=== PATIENT | female | born 1970 | race Caucasian/White ===

== ENCOUNTER 2018-08-30 04:04 | Emergency (ER) | payer SELFPAY ==
[~2018-08-30] VITALS: Ht 162.6 cm; Wt 58.1 kg
[2018-08-30 04:18] VITALS: Ht 162.6 cm; Wt 58.1 kg
[2018-08-30 06:36] VITALS: BP 121/84
== END 2018-08-30 06:36 | disposition home or self-care (01) ==
LOC: EDBD 04:04 → ED 04:04
DX: M79.10 Myalgia, unspecified site (principal); M79.671 Pain in right foot; M79.672 Pain in left foot; Z98.890 Other specified postprocedural states

== ENCOUNTER 2018-08-30 07:25 | Inpatient (IN) | payer MEDICAID ==
[~2018-08-30] VITALS: Ht 162.6 cm; Wt 64.0 kg
--- NOTE | 2018-08-30 07:39 | NUR ---
RECEIVED PATIENT TO ROOM 5, [facility], PER REPORT PATIENT WAS FOUND IN [facility] [employer], CONFUSED, DIDN'T KNOW HOW SHE GOT THERE. [facility] IS "GRAVELY DISABLED" AND WILL PUT PATIENT ON HOLD. PATIENT IS AAO X 3 (NAME, , AND CONDITION). WHEN ASKED HOW SHE GOT TO [facility] FROM [place], PATIENT STATES "I TOOK THE BUS. I DON'T KNOW WHEN I GOT HERE." PATIENT STATES "I LIVE WITH MY PARENTS IN [place], AT [address], [place] [id number], TEL # [phone]." PATIENT DENIES TAKING ALCOHOL/DRUGS. PATIENT STATES "I TOOK MY MEDS LAST NIGHT." EYES - RUBÉN. MUCUS - DRY. LUNGS - CTA. BS PRESENT X 4 QUADRANTS. B/L UPPER AND LOWER EXT PULSES PALPABLE. WILL CONTINUE TO MONITOR.//MAY RN
--- NOTE | 2018-08-30 07:48 | NUR ---
PATIENT IN ROOM 5, NEAR NURSING STATION.//APR RN
--- NOTE | 2018-08-30 07:50 | NUR ---
PATIENT ASKED FOR UNDERWEAR, GIVEN UNDERWEAR AND SHE PUT IT ON HERSELF. SUDDEN OUTBURSE OF CUSSING AND SEEMS ANGRY. WILL CONTINUE TO MONITOR.//APR RN
--- NOTE | 2018-08-30 08:00 | NUR ---
CALLED [phone] AND SPOKE WITH RAVINDER PENA - STEP FATHER WHO STATES PATIENT USED TO LIVE WITH THEM UNTIL HER BOYFRIEND ABOUT 4 YEARS AGO. STEP FATHER STATES "SHE'S BEEN TO [facility] IN [place], BUT SHE NEEDS TO BE IN THE [facility] SO I CAN VISIT HER THERE. HER MOTHER HAS THE SAME CONDITION AND SHE'S IN A FACILITY RIGHT NOW SO SHE CAN'T CARE FOR HER. I DON'T WANT HER HERE AT HOME BECAUSE SHE'S TOO MUCH AND SHE'S A TROUBLE, SHE REALLY NEEDS TO BE IN A FACILITY." ADVISED RAVINDER PENA WILL KEEP HIM POSTED OF THE PATIENT'S CONDITION AND WILL CALL BACK AGAIN SHOULD WE NEED FURTHER INFORMATION FROM HIM. RAVINDER VERBALIZED UNDERSTANDING. DR VALENCIA MADE AWARE OF ABOVE CONVERSATION WITH RAVINDER PENA, ADVISED OF SW NEED FOR EVAL AT THIS TIME.//MAY RN
--- NOTE | 2018-08-30 09:12 | NUR ---
PATIENT SLEEPING, BUT ASILY AROUSABLE.//APR RN
--- NOTE | 2018-08-30 09:51 | NUR ---
PATIENT GIVEN BREAKFAST, BUT REFUSED STATES "LEAVE ME ALONE, I DON'T WANT TO EAT, I JUST WANT TO SLEEP."//APR RN
--- NOTE | 2018-08-30 10:35 | NUR ---
SW AT BEDSIDE FOR EVAL, APPRISED OF PATIENT'S CONDITION.//APR RN
--- NOTE | 2018-08-30 12:50 | NUR ---
PT REFUSED LAB WORK
--- NOTE | 2018-08-30 13:05 | NUR ---
PER DR. VALENCIA, DRAW LABS. LAB @ BEDSIDE.
--- NOTE | 2018-08-30 13:11 | NUR ---
LABS DRAWN BY [employer] AT THIS TIME.//JUNE RN
--- NOTE | 2018-08-30 13:11 | NUR ---
PATIENT GIVEN LUNCH AND EATING LUNCH AT THIS TIME. PATIENT DENIES ANY PAIN AT THIS TIME//APR RN
[2018-08-30 13:26] LABS: BASOPHIL % 0.7 % (0-2); PLATELET COUNT 161 x10^3mcL (130-400)
[2018-08-30 13:28] LABS: RED CELL DISTRIBUTION WIDTH 15.6 % (11.5-14.5)
--- NOTE | 2018-08-30 13:32 | NUR ---
PATIENT BELIGERENT, TOOK OFF CLOTHES, GOT OUT OF BED AND SCREAMING STATING "I WANT TO GO HOME NOW, I JUST WANT TO TAKE THE BUS AND GO HOME. DR VALENCIA AT BEDSIDE, NEW ORDERS GIVEN AND CARRIED OUT..//MAY RN
[2018-08-30 13:34] LABS: CALCIUM 8.1 mg/dL (8.5-10.1); CARBON DIOXIDE 28.5 mmol/L (21-32); CHLORIDE SERUM 110 mmol/L (98-107); CREATININE SERUM 0.6 mg/dL (0.6-1.0); GFR1 > 60 mL/min; GLUCOSE SERUM 91 mg/dL (74-106); POTASSIUM SERUM 4.1 mmol/L (3.5-5.1); SODIUM SERUM 144 mmol/L (136-145)
[2018-08-30 13:39] LABS: ALBUMIN 3.1 g/dL (3.4-5.0); ALKALINE PHOSPHATASE 88 U/L (46-116); ALT/SGPT 22 U/L (14-59); AST/SGOT 20 U/L (15-37); BILIRUBIN TOTAL 0.3 mg/dL (0.20-1.00); TOTAL PROTEIN, SERUM 6.6 g/dL (6.4-8.2)
--- NOTE | 2018-08-30 14:08 | NUR ---
CALLED [phone] AND SPOKE WITH RAVINDER PENA, STEP FATHER, APPRISED OF THE NEED TO PUT PATIENT ON RESTRAINT. STEP FATHER CONCURRED AND VERBALIZED UNDERSTANDING, NO QUESTION AT THIS TIME.//APR RN
--- NOTE | 2018-08-30 14:55 | NUR ---
KAREN LY AT BEDSIDE, APPRISED OF PATIENT'S CONDITION AND THE NEED FOR RESTRAINTS. STATES PATIENT NEEDS TO BE ADMITTED, BUT NOW THE STEP FATHER IS NOT PICKING UP HER PHONE CALLS. ADVISED TO LET DR VALENCIA KNOW ABOUT HER CONVERSATIONS WITH PATIENT AND HER ASSESSMENT.//APR RN
--- NOTE | 2018-08-30 18:42 | NUR ---
ATTEMPTED TO TRIAL RELEASE OF B/L LOWER EXT RESTRAINTS, BUT PATIENT STARTED KICKING. WILL TRY AGAIN LATER.//MAY RN
--- NOTE | 2018-08-30 19:03 | NUR ---
RECEIVED REPORT FROM JOYCE TRACEY FOR CONTINUED CARE OF PATIENT.
--- NOTE | 2018-08-30 19:07 | NUR ---
REPORT GIVEN TO JOYCE GOMES FOR [place] [facility]OR[facility].//APR RN
--- NOTE | 2018-08-30 20:55 | NUR ---
RELEASED PT FROM RESTRAINTS SO SHE COULD EAT. WILL CONTINUE TO MONITOR.
--- NOTE | 2018-08-30 22:02 | NUR ---
PATIENT SLEEPING ON GURNEY- NO SS OF DISTRESS NOTED. BREATHING EVEN AND UNLABORED. WILL CONTINUE TO MONITOR.
--- NOTE | 2018-08-30 23:31 | NUR ---
PATIENT LYING ON GURNEY- SLEEPING NO SS OF DISTRESS NOTED. SAFETY CHECK OF ROOM COMPLETE. CURTAINS OPEN AND PT PLACED IN FULL VIEW OF NURSING STATION. WILL CONTINUE TO MONITOR.
--- NOTE | 2018-08-31 01:43 | NUR ---
PATIENT SLEEPING ON GURNEY- BREATHING EVEN AND UNLABORED. NO SS OF DISTRESS NOTED.
--- NOTE | 2018-08-31 02:43 | NUR ---
PATIENT SLEEPING ON GURNEY- NO SS OF DISTRESS. PATIENT ON BACK WITH BLANKETS COVERING HER. BREATHING EVEN AND UNLABORED. VSS.
--- NOTE | 2018-08-31 03:40 | NUR ---
PATIENT CURLED UP ASLEEP IN COMFORTABLE POSITION. BREATHING EVEN AND UNLABORED. NO SS OF DISTRESS NOTED.
--- NOTE | 2018-08-31 04:59 | NUR ---
PATIENT SLEEPING ON GURNEY- EASILY AROUSABLE. NO SS OF DISTRESS NOTED. WILL CONTINUE TO MONITOR.
--- NOTE | 2018-08-31 06:22 | NUR ---
PATIENT SLEEPING ON BACK ON GURNEYP- BREATHING EVEN AND UNLABORED. WILL CONTINUE TO MONITOR.
--- NOTE | 2018-08-31 07:14 | NUR ---
PROVIDED REPORT TO JOYCE CHANDLER FOR CONTINUED CARE OF PATIENT.
--- NOTE | 2018-08-31 08:06 | NUR ---
PT AWAKE, ALERT, ORIENTED, BREAKFAST TOLERATED WELL. DENIES ANY PAIN AT THIS TIME. REQUESTING TO GO HOME. UPDATED ON PLAN OF STATUS, VERBALIZED UNDERSTANDING. COOPERATIVE AT THIS TIME.
--- NOTE | 2018-08-31 08:22 | NUR ---
REPORT GIVEN TO TALON COOK, UPDATED ON STATUS, LABS AND VITALS. PT STABLE FOR TRANSFER.
--- NOTE | 2018-08-31 09:10 | NUR ---
PT ADMITTED TO FLOOR, CARE TRANSFERRED TO TALON COOK. ALL PAPERWORK WITH PT INCLUDING [phone].
--- NOTE | 2018-08-31 09:17 | NUR ---
PATIENT ARRIVED FROM ED VIA GUERNEY AND AMBULATED TO BED WITHOUT ASSITANCE. PATIENT A/OX4 DENIES PAIN, STATES SHE WANTS TO GO HOME BUT IS ON A 5150 HOLD. PATIENT IS COMPLIANT AT THIS TIME DENIES SI AND HI. NO OTHER COMPLAINTS AT THIS TIME
[2018-08-31 09:55] VITALS: BP 113/65
[2018-08-31 10:09] VITALS: Ht 162.6 cm; Wt 64.0 kg
--- NOTE | 2018-08-31 10:27 | NUR ---
ADMINSITERED MEDICATIONS PER MAR. PATIENT REFUSED COLACE WELL REFUSED IV ACCESS. CALL LIGHT WITHINR REACH SITTER IN ROOM
--- NOTE | 2018-08-31 11:53 | NUR ---
DIRECTOR DIGITAL ANALYTICS IN TO SEE PATIENT. PATIENT VERY CONFRONTATIONAL ATTEMPTING TO STRIKE NURSE. NOT COMPL;IENT WITH INSTRUCTIONS SITTER IN ROOM
--- NOTE | 2018-08-31 13:34 | NUR ---
Discount pharmacy card and list to low cost medical clinics given to patient by Brando Howe.
--- NOTE | 2018-08-31 13:56 | NUR ---
PATIENT SEEN RESTING IN BED. BREATHING NORMAL. SITTER STATED PATIENT HAS BEEN YWELLING ABOUT GOING HOME BUT HAD NOT BEEN AGGRESIVE TOWARDS STAFF. WILL CONITNUE TO MONITOR
--- NOTE | 2018-08-31 16:08 | NUR ---
PATIENT CONTINUED TO BE AGGRESSIVE. CONCENTED TO IV. IV PLACED IN LEFT FOREARM. ATIVAN ADMINITERED PER ORDER. BED PLACED IN LOWEST POSITION WITH SITTER IN ROOM
--- NOTE | 2018-08-31 17:00 | NUR ---
BLOOD PRODUCT STARTED AT 1700. STAYED IN PATIENT ROOM FOR 15 MINUTIES. NO SIGN OF ADVERSE REACTION. VSS, PATIENT EDUCATED ABOUT SIGNS OF ADVERSE REACTIONS. ALL QUESTIONS ANSWERED. WILL CONTINUE TO MONITOR
[2018-08-31 17:45] VITALS: BP 110/63
--- NOTE | 2018-08-31 19:47 | NUR ---
[facility] NOC shift is aware of patient and will assist with bed placement through out shift.
--- NOTE | 2018-08-31 19:57 | NUR ---
Called the following contracted psych facilities for bed placement. [facility], spoke with Paul. They do not have any beds at this time. [facility], spoke with Maria Luisa. Psychiatric units are full for the night. [facility], spoke with Jeanette. Psychiatric unit is saturated for the night and can not accommodate the patient. [facility], spoke with Neela. Neela says that they are not contracted with [facility] and can not accommodate the patient. [facility], no answer, left voice message @ [phone]. [facility], spoke with Michelle, their psych unit is at max capacity for the night and can not accept patient at this time. [facility], spoke with Mer. They are not contracted with any adult [facility]. [facility], spoke with Allen, no beds available tonight. [facility], spoke with Hang and they have no rooms available and can not accommodate patient tonight. [facility] will notify med surg unit if a bed becomes available for patient.
--- NOTE | 2018-08-31 20:00 | NUR ---
RECEIVED PT ASLEEP BUT AROUSABLE APPEARS DROWSY WHEN AWAKENED.NO AGITATION TOWARDS STAFF AT THIS TIME.NURSE AT BEDSIDE TO ASSIST WITH ADLS.WILL CONTINUE TO MONITOR.
[2018-08-31 21:56] VITALS: BP 104/68
--- NOTE | 2018-09-01 04:47 | NUR ---
PT ASLEEP ALL NIGHT.NO EPISODES OF AGITATION TOWARDS STAFF.DENIES ANY PAIN OR DISCOMFORT.STAFF AT BEDSIDE TO ASSIST WITH ADLS.ALL NEEDS MET.WILL CONTINUE TO MONITOR.
[2018-09-01 05:38] VITALS: BP 99/61
--- NOTE | 2018-09-01 07:31 | NUR ---
PT NOTED SCREAMING AT DRUMS TEACHER. PT REFUSED TO BE ASSESSED. ATIVAN 1MG IVP GIVEN. DRUMS TEACHER AT BEDSIDE ON ONE TO ONE SUPVISION. WILL CONTINUE TO MONITOR.
--- NOTE | 2018-09-01 07:35 | NUR ---
PT IS AAOX3 TO PERSON, PLACE, SITUATION. PT CAN NOT STATE PRESIDENT OR RECALL WHERE SHE LIVES. PT IS HOMELESS WITH DX OF SCHIZOPHRENIA, DEPRESSION, AND BIPOLAR DISORDER. RESP EVEN AND UNLABORED. ON R/A. NORMAL S1S2 NOTED. PT REFUSED PHYSICAL EXAM. PT IS AGITATED BUT ABLE TO BE CALMED DOWN BY ALLOWING HER TO VERBALIZE HER FEELINGS. NO EDEMA NOTED TO EXTREMITIES. IV CATH TO LFA INTACT. SITE WNL. NO S/S OF INFECTION NOTED. PT DENIES PAIN. STAFF IN ROOM ON ONE TO ONE SUPERVISION. CALL LIGHT WITHIN REACH.
[2018-09-01 09:07] VITALS: BP 115/59
--- NOTE | 2018-09-01 09:51 | NUR ---
PT ASSISTED WITH BREAKFAST SET-UP. GIVEN EXTRA FLUIDS. ENCOURAGED TO EAT AND DRINK WATER. PT DEMONSTRATED UNDERSTANDING. DUE MEDS GIVEN. RESP EVEN AND UNLABORED. NO DISTRESS NOTED. DENIES PAIN. CALL LIGHT WITHIN REACH. STAFF AT BESIDE ON ONE TO ONE SUPERVISION.
--- NOTE | 2018-09-01 11:14 | NUR ---
F/u with the following facilities: [facility]: No beds, states backed up on pts. [facility]: States open beds, will revie pacekt. [facility]: States packet on file, states they are currently D/C planning and will place calls for accepted pts after. [facility]: States no beds available today. S/W Amy Will continue to look for placement. Will contact with updates.
--- NOTE | 2018-09-01 12:46 | NUR ---
PT YELLING AND ATTEMPTING TO SHOVE STAFF MEMBER SUPERVISING. PT IS TAKING OFF CLOTHING AND THROWING IT AT STAFF. PT STATED, "I GOING TO RUN OUT OF HERE!" REPORTED TO NEIDA JOHN NP. RECEIVED ORDER FOR HALDOL 2.5MG IM X1 NOW. ORDER NOTED AND CARRIED OUT. PT MADE AWARE. DOSE RECEIVED, PT IS SITTING UP AT BEDSIDE YELLING, " I WANT TO GO HOME!, I WANT TO GO HOME!" STAFF MEMBER AT BESIDE ON ONE TO ONE SUPERVISION. SECURITY SPOKE WITH PT AND ATTEMPTED TO CALM PT. WILL CONTINUE TO MONITOR.
--- NOTE | 2018-09-01 13:00 | NUR ---
PT AGGRESSIVE TOWARDS STAFF. ATTEMPTING TO SHOVE PAST BIOLOGICAL ENGINEER AT DOORWAY. SCREAMING AND SPITTING AT STAFF. ATTEMPT TO REORIENT PT, DECREASE STIMULI, AND HAVE SITTER AT BEDSIDE UNSUCCESSFUL. BILATERAL SOFT WRIST RESTRAINTS APPLIED. 2 FINGER WIDTH LENGTH BETWEEN RESTRAINT AND PT. BUE CAP REFILL <3 SECONDS. NO S/S OF REDNESS OR SKIN IRRITATION NOTED. STAFF MEMBER AT BEDSIDE ON ONE TO ONE SUPERVISION. RESP EVEN AND UNLABORED. NO RESP DISTRESS NOTED. WILL CONTINUE TO MONITOR.
--- NOTE | 2018-09-01 13:00 | NUR ---
PT AGGRESSIVE TOWARDS STAFF. ATTEMPTING TO SHOVE PAST [facility] NURSE SUPERVISOR AT DOORWAY. SCREAMING AND SPITTING AT STAFF. ATTEMPT TO REORIENT PT, DECREASE STIMULI, AND HAVE SITTER AT BEDSIDE UNSUCCESSFUL. REPORTED TO NEIDA JOHN NP AND RECEIVED ORDER FOR BILTERAL SOFT WRIST RESTRAINTS. BILATERAL SOFT WRIST RESTRAINTS APPLIED. 2 FINGER WIDTH LENGTH BETWEEN RESTRAINT AND PT. BUE CAP REFILL <3 SECONDS. NO S/S OF REDNESS OR SKIN IRRITATION NOTED. STAFF MEMBER AT BEDSIDE ON ONE TO ONE SUPERVISION. RESP EVEN AND UNLABORED. NO RESP DISTRESS NOTED. WILL CONTINUE TO MONITOR.
--- NOTE | 2018-09-01 13:32 | NUR ---
PT IS SCREAMING AND CRYING IN BED, VERY RESTLESS AND AGITATED, ALSO ATTEMPTING TO USE HER LEGS KICKING STAFFS AND ATTEMPTING TO SPIT SALIVA TO STAFFS, ALSO VERBALLY ABUSIVE TOWARDS TO STAFFS, BP-120/60, HR:80, RR:20, ATIVAN 1MG VIA IVP ADMINISTERED, SITTER REMAIN AT BEDSIDE. ANDREW WRIST WITH SOFT RESTRAINTS.
--- NOTE | 2018-09-01 14:23 | NUR ---
PT SCREAMING AND SPITTING AT STAFF. PT UNCOOPERATIVE WITH ADLS URINATING ON SELF AND REFUSING TO BE CLEANED. REPORTED TO NEIDA JOHN NP. RECEIVED ORDER FOR HALDOL 2.5MG IM X1 NOW. SEROQUEL 100MG PO Q HS. ORDER NOTED AND CARRIED OUT. HALDOL 2.5MG GIVEN TO R DELTOID. PT ON BILATERAL SOFT WRIST RESTRAINTS. SITE WNL, CAP REFILL < 3. NO REDNESS OR IRRITATION TO SKIN NOTED. PT ON ONE TO ONE SUPERVISION WITH STAFF AT BEDSIDE.
--- NOTE | 2018-09-01 16:07 | NUR ---
DUE PO MEDS TAKEN BY PT. EXTRA FLUIDS ENCOURAGED BUT REFUSED. PT HOB ELEVATED TO FOR PT TO TAKE MEDICATION. SOFT WRIST RESTRAINTS IN PLACE, SITES WNL. NO REDNESS, SKIN IRRITATION, OR SWELLING NOTICED. CAP REFILL <3 SECONDS. STAFF AT BEDSIDE ON ONE TO ONE SUPERVISION.
--- NOTE | 2018-09-01 16:26 | NUR ---
No beds available at contracted facilities at this time. Will continue to f/u with facilities.
[2018-09-01 16:39] VITALS: BP 115/80
--- NOTE | 2018-09-01 17:27 | NUR ---
AMADEO CARRASQUILLO NP EVAL PATIENT AFTER GEODON GIVEN BY 6PM IF NOT EFFECTIVE WITH GEODON TRANSFER PATIENT ICU ON 4 POINTS RESTRAINT.
--- NOTE | 2018-09-01 17:49 | NUR ---
PT EXTREMELY AGITATED. FLAILING IN BED, SCREAMING AND SPITTING AT STAFF. GEODON 10MG IM GIVEN IN L DELTOID. IV CATH TO LFA FELL OUT. NEW IV STARTED TO RFA 22G COVERED WITH OCCLUSIVE DRESSING, SITE WNL. IV FLUIDS STARTED AT 100ML PER HOUR. PT TRANSFERRED TO TELEMETRY. TELEMONITOR [address] READING NSR. RESP EVEN AND UNLABORED. PT REMAINS SCREAMING AND RESISTANT TO STAFF'S ASSISTANCE. WILL CONTINUE TO MONITOR. CALL LIGHT WITHIN REACH. BED IN LOW POSITION. BILATERAL SOFT WRIST RESTRAINTS IN PLACE. SITE WNL, NO S/S OF REDNESS, SWELLLING OR SKIN IRRITATION. CAP REFILL <3 SEC.
--- NOTE | 2018-09-01 18:42 | NUR ---
PT IS AAOX4. RESP EVEN AND UNLABORED. NO RESP DISTRESS NOTED. IVF RUNNING TO RFA SITE WNL. NO S/S OF INFECTION OR INFILTRATION. TELE [address] READING NSR. BILATERAL SOFT WRIST RESTRAINTS IN PLACE. SITE WNL, NO S/S OF REDNESS, SWELLING, OR SKIN IRRITATION. CAP REFILL <3 SECS. TWO FINGER SPACE BETWEEN RESTRAINT AND PT'S WRIST. WILL ENDORSE ALL CARE TO JOYCE NARVAEZ. BED IN LOW POSITION. STAFF IN ROOM ON ONE TO ONE SUPERVISION.
--- NOTE | 2018-09-01 18:58 | NUR ---
BEDSIDE HANDOFF REPORT RECEIVED FROM VALENTINE-JOYCE, PT SEEN, ASLEEP BUT EASILY AROUSABLE, BREATHING EVEN AND UNLABORED ON ROOM AIR WITH NO RESP DISTRESS NOTED, ON TELE#18 NSR, IVF INFUSING WELL, ANDREW WRISTS WITH RESTARINTS, SIDE RAILS UP, CLUTTER FREE ENVIRONMENT MAINTAINED, SITTER AT BEDSIDE.
--- NOTE | 2018-09-01 19:20 | NUR ---
PT ARRIVED TO ICU BED 5, ACCOMPANIED BY BRICE, RN AND LAND DEGRADATION ANALYST. PT TRANSFERRED TO ICU BED 5 AND APPLIED 4 POINT RESTRAINTS FOR PATIENT SAFETY, ATTACHED TO FULL TURKISH RUBBER AND CONTINUOUS PULSE OXIMETRY. PT AOX3 ABLE TO RESPOND TO COMMANDS, PT CONFUSED AND AGITATED BEING AGGRESSIVE WITH STAFF. PUPILS 4MM BRISK RESPONSE TO LIGHT B/L, PERRLA. SPEECH GARBLED AT TIMES. NO FACIAL DROOP. HX OF SCHIZOPHRENIA, PT MUMBLING INCOHERENT WORDS.TRACHEA MIDLINE, NO DRAIANGE TO EENT.LUNG SOUNDS CTAB, CHEST RISE/FALL SYMMETRIC, E/U BREATHING, NO ACUTE RESP DISTRESS, NO SOB. ROOM AIR.S1/S2 SOUNDS. CHEST WALL STABLE, NO S/S OF CHEST PAIN.SKIN COLOR CONSISTENT WITH ETHNICITY, CAP REFILL <3 SEC, PULSES MODERATE X4 EXTREMITIES, NO EDEMA. NS INFUSING @ 100 ML/HR.GEN WEAKNESS. ROM ACTIVE, NO CONTRACTURES/DEFORMITIES, PT ON TURN SCHED Q2H. 4 POINT WRIST RESTRAINTS ON FOR PATIENT SAFETY, SKIN/PULSE WNL WITH 2 FINGER WIDTH SPACE. NO JOINT SWELLING/TENDERNESS, INTACT. NO S/S OF N/V.ACTIVE BOWEL SOUNDS X4 QUADRANTS, ABD SOFT/ROUND, NO BM.PT INCONTINENT. CLEAR YELLOW URINE NOTED ON CHUCKS. NO LABIAL EDEMA OR VAG DISCHARGE NOTED.IV TO RFA, 22G, PORT PATENT, NO S/S OF INFILTRATION, DRESSING CDI. SKIN WARM/DRY TO TOUCH.PT UNCOOPERATIVE WITH STAFF AND NURSING CARE, ATTEMPTING TO BITE, SCRATCH, AND HIT NURSING STAFF. BED AT LOWEST SETTING, CALL LIGHT WITHIN REACH, HOB ELEVATED 30 DEGREES.
--- NOTE | 2018-09-01 19:21 | NUR ---
PT TRANSFERRED TO ICU VIA BED ACCOMPANIED WITH NURSE AND CNAS, PT WAS AWAKE AND VERBALLY ABUSIVE TOWARDS TO STAFF DURING TRANSPORT, BEDSIDE HANDOFF REPORT GIVEN TO CHRIS, ALL QUESTIONS ANSWERED AND CONCERNS ADDRESSED, MOVED PT TO ICU BED WITHOUT ANY INCIDENT, RESTRAINTS APPLIED, ALL BELONGINGS SENT WITH PT.
[2018-09-01 19:25] VITALS: BP 139/61
--- NOTE | 2018-09-01 19:40 | NUR ---
DR. VASQUEZ AT BEDSIDE, INFORMED HIM OF PT'S INCONTINENT STATUS. PER DR. PEDRO HAYDEN TO INSERT RHODES CATHETER. RHODES CATHETER INSERTED USING STERILE TECHNIQUE WITH ASSISTANCE OF JOYCE CISSE.
--- NOTE | 2018-09-01 21:19 | NUR ---
RT QURESHI AT BEDSIDE FOR EKG.
--- NOTE | 2018-09-01 22:19 | NUR ---
Patient is transferred to ICU and is not medically cleared at this time. Still no beds available at contracted [facility] facilities. [facility]- s[facility]w [facility]w [facility]- s/w [facility]- s/w Trista Cortez [facility]- s/w rosa isela [facility]- s/w Duong [facility] will continue to look for bed placement after patient is out of ICU and is medically cleared.
[2018-09-01 23:01] VITALS: BP 126/76
[2018-09-02 03:02] VITALS: BP 117/67
--- NOTE | 2018-09-02 04:12 | NUR ---
SPOKE WITH DR. VASQUEZ ON ORDERING AM LABS, PER DR. VASQUEZ PT DOES NOT NEED MORNING LABS PATIENT IS STABLE. WILL CONT TO MONITOR.
--- NOTE | 2018-09-02 06:35 | NUR ---
PT AWAKE/ALERT AT THIS TIME YELLING AND SCREAMING AT NURSING STAFF, UNABLE TO COMPREHEND MUMBLED WORDS. PT REMAINS ATTACHED TO FULL REPAIRER RECREATIONAL VEHICLE AND CONTINUOUS PULSE OXIMETRY. BED AT LOWEST SETTING, CALL LIGHT WITHIN REACH, HOB ELEVATED 30 DEGREES. F/C DRAINING TO GRAVITY CLEAR YELLOW URINE, INTACT/SECURED. RFA 22G IV PORT PATENT, NO S/S OF INFILTRATION, DRESSING CDI, INFUSING NS @100 ML/HR. PT REMAINS ON 4 POINT RESTRAINTS FOR PT SAFETY SHE REMOVES IV, GOWN, EQUIPMENT, RHODES, AND ATTEMPTS TO BITE, SCRATCH, KICK AND HIT STAFF WHEN REMOVED. NO ACUTE RESP DISTRESS, ON ROOM AIR, VITALS WNL. WILL CONT TO MONITOR.
--- NOTE | 2018-09-02 07:02 | NUR ---
NEIDA COMPUTER OPERATOR AT BEDSIDE FOR ASSESSMENT, SPEAKING WITH PT ON POC.
--- NOTE | 2018-09-02 07:04 | NUR ---
GAVE GROUP REPORT TO MAK RN, NICO RN, AND JOYCE LUX. UPDATES GIVEN, QUESTIONS ANSWERED.
--- NOTE | 2018-09-02 07:10 | NUR ---
REPORT RC'D FROM RACHELLE COOK, ALL QUESTIONS AND CONCERNS ADDRESSED. WILL CONT TO MONITOR PT
[2018-09-02 08:00] VITALS: BP 134/96; BP 137/98
--- NOTE | 2018-09-02 08:00 | NUR ---
RC'D PT RESTING IN BED, AGRESSIVE AND AGITATED. PT NONCOOPERATIVE WITH CARE AT THIS TIME, KICKING AND SCREAMING. PT CURRENTLY ON 4 POINT SOFT RESTRAINTS, CAP REFILL <3. PT REPORTS GOOD SENSATION TO ALL DIGITS. PT A/OX3, CONFUSED. HX OF SCHIZO, DEPRESSION, BIPOLAR. RESPIRATIONS E/U. LUNG DIM IN BASES. ON RA, DENIES SOB. O2 SAT CURRENTLY 97%, NO RESP DISTRESS NOTED. MOD PALP PULSES TO ALL EXTREMITIES. SCDS IN PLACE. IV NOTED TO RFA INFUSING NS @100, NO ERRYTHEMA/INFLAMMATION NOTED. NSR ON MONITOR. S1S2 AUCULTATED. PT DENIES CP. ABDOMEN SOFT AND NONTENDER. ACTIVE BS. DENIES N/V. NO BM NOTED AT THIS TIME. F/C WITH ELIJAH URINE DRAINING TO GRAVITY, WNL. NO VAGINAL DISCHARGE OR INFLAMMATION NOTED. SKIN W/D/I. BED IN LOWEST POSITION. WILL CONT TO MONITOR
--- NOTE | 2018-09-02 10:35 | NUR ---
PT SCREAMING AND YELLING AGGRESSIVELY. NOTIFIED VALIDATION TECHNICIAN NEIDA AT THIS TIME. AWAITING NEW ORDERS AT THIS TIME
--- NOTE | 2018-09-02 10:47 | NUR ---
PT AGITATED/SCREAMING AND BANGING HEAD ON THE BED, MEDICATED WITH HALDOL PER ORDER. WILL CONT TO MONITOR
[2018-09-02 11:00] VITALS: BP 108/72
--- NOTE | 2018-09-02 11:34 | NUR ---
BULK SYSTEM OPERATOR ARY PRESENT AT BEDSIDE. DISCUSSING PT POC. WILL CONT TO MONITOR
--- NOTE | 2018-09-02 11:59 | NUR ---
PT SCREAMING AND AGITATED. GEODON IM GIVEN AT THIS TIME TO LEFT DELTOID PER TRAFFIC RATE COMPUTER ORDER. PT TOLERATED WELL. WILL CONT TO MONITOR
--- NOTE | 2018-09-02 14:03 | NUR ---
PT ABLE TO GET OUT OF WRIST RESTRAINTS AFTER THRASHING AND BANGING HEAD. PT YELLING OUT PROFANITY AND ACCUSING NURSE OF INAPPROPRIATELY TOUCHING HER. PT ATTEMPTING TO SCRATCH AND BITE. ABLE TO PUT RESTRAINT BACK ON, AND PROVIDED PT WITH ATIVAN PER DOCTOR ORDER. WILL CONTINUE TO MONITOR.
[2018-09-02 15:00] VITALS: BP 137/60
--- NOTE | 2018-09-02 17:18 | NUR ---
PT RESTING IN BED WITH NO APPARENT S/S OF DISCOMFORT. RESPIRATIONS E/U. ON RA, DENIES SOB. NO RESP DISTRESS NOTED, O2 SAT 97%. 4 PO[address] SOFT RESTRAINTS IN PLACE, CAP REFILL <3, PT REPORTS GOOD SENSATION TO ALL DIGITS. NSR ON MONITOR. VITALS STABLE. ABDOMEN SOFT AND NONTENDER. PT DENIES N/V. NO BM NOTED DURING THIS SHIFT. F/C WITH YELLOW URINE DRAINING TO GRAVITY, WNL. RHODES CARE PROVIDED AT THIS TIME. PT CLEANED FOR COMFORT. NO ACUTE SKIN CHANGES NOTED AT THIS TIME. IV TO RFA INFUSING NS@100, NO ERYTHEMA/INFLAMMATION NOTED. WILL ENDORSE TO SPINDLE TESTER RN
--- NOTE | 2018-09-02 18:01 | NUR ---
THE PATIENT IS AGGRESSIVE, RESTLESS, AND AGITATED. PATIENT IS ATTEMPTING TO GET OUT OF BED, CURSING AND SPITTING AT THE STAFF. THE PATIENT WAS VERBALLY EXPLAINED THE REASON WHY SHE WAS ON THE SOFT RESTRAINTS, BUT PATIENT STILL WANTED TO JUMP OUT OF BED. ATIVAN 1MG IVP WAS MEDICATED TO THE PATIENT BY THE CHARGE NURSE.
--- NOTE | 2018-09-02 19:10 | NUR ---
RECEIVED REPORT FROM ADONAY COOK. WILL RESUME CARE.
--- NOTE | 2018-09-02 19:15 | NUR ---
REPORT GIVEN TO BRENDAN OWENS RN. CONCERNS ADDRESSED.
[2018-09-02 19:20] VITALS: BP 158/93
--- NOTE | 2018-09-02 21:38 | NUR ---
PSYCH EVAL BEING DONE AT BEDSIDE.
--- NOTE | 2018-09-02 22:27 | NUR ---
ATIVAN 1MG IVP GIVEN FOR AGITATION. WILL CONTINUE TO MONITOR.
[2018-09-02 23:25] VITALS: BP 144/93
[2018-09-03 03:28] VITALS: BP 143/89
--- NOTE | 2018-09-03 04:50 | NUR ---
BIGHT MAKER AT BEDSIDE FOR BLOOD DRAW.
[2018-09-03 05:00] LABS: BASOPHIL % 0.5 % (0-2); PLATELET COUNT 166 x10^3mcL (130-400); RED CELL DISTRIBUTION WIDTH 14.9 % (11.5-14.5)
--- NOTE | 2018-09-03 05:02 | NUR ---
PT PROVIDED WITH FULL BED BATH AND ALL LINENS CHANGED. RHODES CATHETER CARE PROVIDED. 1550CC OF LIGHT YELLOW URINE OUTPUT DURING SHIFT. ALL NEEDS MET AND ANTICIPATED. PT REMAINS ON 4 POINT RESTRAINTS FOR PT SAFETY. BED IN LOW POSITION. CALL LIGHT WITHIN REACH.
[2018-09-03 05:13] LABS: CALCIUM 8.6 mg/dL (8.5-10.1); CARBON DIOXIDE 24.9 mmol/L (21-32); CHLORIDE SERUM 106 mmol/L (98-107); CREATININE SERUM 0.6 mg/dL (0.6-1.0); GFR1 > 60 mL/min; GLUCOSE SERUM 92 mg/dL (74-106); POTASSIUM SERUM 3.7 mmol/L (3.5-5.1); SODIUM SERUM 141 mmol/L (136-145)
--- NOTE | 2018-09-03 07:10 | NUR ---
GAVE REPORT TO KRYSTYNA COOK. ALL QUESTIONS AND CONCERNS ADDRESSED.
--- NOTE | 2018-09-03 07:20 | NUR ---
RC'D REPORT FROM ROMAN COOK. ALL QUESTIONS AND CONCERNS ADDRESSED
[2018-09-03 07:30] VITALS: BP 129/82
--- NOTE | 2018-09-03 07:30 | NUR ---
RC'D PT RESTING IN BED YELLING AND SCREAMING. PT ON 4 POINT SOFT RESTRAINTS, CAP REFILL <3 NOTED WITH GOOD SENASATION TO ALL DIGITS. PT A/A/O/X3, CONFUSED. DENIES VINCENT/DIZZINESS. RESPIRATIONS E/U. LUNGS DIM IN BASES. ON RA, DENIES SOB. O2 SAT 98%, NO RESP DISTRESS NOTED. SINUS TACH ON MONITOR. PT DENIES CP. ABDOMEN SOFT AND NONTENDER. ACTIVE BS. DENIES N/V. NO BM NOTED AT THIS TIME. F/C WITH YELLOW URINE DRAINING TO GRAVITY, WNL. SKIN W/D/I. NS INFUSING @100 TO RFA, NO S/S OF INFLAMMATION/ERYTHEMA. BED IN LOWEST POSITION. WILL CONT TO MONITOR
--- NOTE | 2018-09-03 09:30 | NUR ---
ELISE MCALLISTER PRESENT AT BEDSIDE DISCUSSING POC WITH PT AT THIS TIME
--- NOTE | 2018-09-03 09:50 | NUR ---
PT AGITATED AND SCREAMING, ATTEMPTING TO REMOVE SOFT RESTRAINTS. GEODON IM GIVEN AT THIS TIME PER GYM ATTENDANT ORDER. PT TOLERATED WELL. WILL CONT TO MONITOR
--- NOTE | 2018-09-03 10:27 | NUR ---
NOTED PT REMOVED IV FROM RFA. CATHETER INTACT. DRESSING IN PLACE. WILL CONT TO MONITOR
[2018-09-03 11:30] VITALS: BP 125/82
--- NOTE | 2018-09-03 12:05 | NUR ---
AFTER NUMEROUS BOUTS OF AGITATION AND SCREAMING. PATIENT RESTING COMFORTABLY AT THIS TIME.
--- NOTE | 2018-09-03 13:12 | NUR ---
PT UNCOOPERATIVE WITH CARE, AGITATED AND SCREAMING. PT ATTEMPTING TO SPIT AT STAFF MULTIPLE TIMES. PT EDUCATED ON CURRENT TREATMENT AND POC. PT CURSING AT STAFF AND YELLING.
--- NOTE | 2018-09-03 14:54 | NUR ---
PATIENT WOKE UP FROM NAP AND BEGAN YELLING STATING THAT SHE WANTED TO "GET OUT OF HER TO SEE HER MOTHER." EDUCATION PROVIDED REGARDING 5150 HOLD. PATIENT CONTINUED TO YELL AT MYSELF, ADONAY COOK AND ARNOLDO RN. PATIENT STRUCK AT ME AFTER SCREAMING,YELLING AND USING FOUL LANGUAGE. PATIENT PLACED BACK INTO FOUR POINTS RESTRAINTS. EDUCATION PROVIDED REGARDING USE OF RESTRAINTS. NEIDA OLIVARES MADE AWARE.
[2018-09-03 15:00] VITALS: BP 130/90
--- NOTE | 2018-09-03 18:26 | NUR ---
DR VILLA AT BEDSIDE SPEAKING WITH PATIENT. PATIENT ASKING DR VILLA WHEN SHE CAN GO HOME. EDUCATION PROVIDED BY DR VILLA REGARDING PSYCH HOLD.
[2018-09-03 19:00] VITALS: BP 138/97
--- NOTE | 2018-09-03 19:00 | NUR ---
PT IN BED YELLING AND SCREAMING AT THIS TIME. PT UNCOOPERATIVE WITH CARE. PT PROVIDED EDUCATION ON TREATMENT PURPOSES AND CURRENT POC. PT CONTINUED TO YELL AND USE FOUL LANGUAGE. RESPIRATIONS E/U. ON RA, DENIES SOB. NO RESP DISTRESS. NO BM NOTED DURING SHIFT. F/C WITH URINE DRAINING TO GRAVITY, SECURED IN PLACE. NO ACUTE SKIN CHANGES NOTED AT THIS TIME. NO IV ACCESS AT THIS TIME. BED IN LOWEST POSITION. WILL ENDORSE TO STILL OPERATOR WHISKEY RN
--- NOTE | 2018-09-03 19:30 | NUR ---
RECIEVED PATIENT AT START OF SHIFT ALERT AND UPSET, YELLING INSULTS, AND KICKING AND PULLING ON RESTRAINTS. BILATERAL WRIST AND ANKLE RESTRAINTS IN PLACE. PATIENT RESPONDS TO QUESTIONS AND IS ORIENTED X4. PATIENT IS INSISTENT ON TAKING RESTRAINTS OFF. [facility] CHARGE NURSE REMOVED PATIENTS ANKLE RESTRAINTS AND PATIENT QUICKLY USED FEET TO REMOVE RHODES CATHETER WITH BALLOON INTACT. NO BLOOD NOTED AT U[facility]THRA. ANKLE RESTRAINTS REPLACED. PATIENT IS ON RA SATTING 99%. RESPIRATORY RATE INCREASED DUE TO EMOTIONAL DISTRESS. CHEST SYMMETRICAL. NO EDEMA NOTED, CAP REFILL BRISK. PATIENT IS SINUS TACHY. HEART SOUNDS WNL. SKIN IS WARM DRY AND INTACT. BS ACTIVE. ABDOMEN SOFT AND FLAT. NO IV ACCESS, REFUSING ATTEMPTS TO START LINE, MD AWARE. DENIES PAIN AT THIS TIME. BED LOCKED AND IN LOWEST POSIITON. CALL LIGHT WITHIN REACH. SAFETY REINFORCED.
--- NOTE | 2018-09-03 19:31 | NUR ---
REPORT GIVEN TO NICO COOK AND DONNIE COOK. ALL QUESTIONS AND CONCERNS ADDRESSED
--- NOTE | 2018-09-03 20:15 | NUR ---
PATIENT IS MUCH MORE CALM AND COOPERATIVE. RESTRAINTS REMOVED TO ALLOW PATIENT TO AMBULATE, BRUSH HER TEETH, AND WASH UP. PATIENT IS OBEYING COMMANDS AND REMAINS CALM, LAYING IN BED WITHOUT DISTRESS.
--- NOTE | 2018-09-03 21:59 | NUR ---
PATIENT GIVEN AMBIEN PO PER EMAR FOR TROUBLE SLEEPING.
--- NOTE | 2018-09-03 22:59 | NUR ---
LEONIDESN GIVEN AMBIEN PO PER EMAR FOR TROUBLE SLEEPING.
[2018-09-04] VITALS: BP 105/61
--- NOTE | 2018-09-04 05:11 | NUR ---
PATIENT REFUSED EKG. ADVISED BOTH RN'S, NICO AND RICHIE WILL TRY AGAIN LATER
[2018-09-04 05:50] LABS: PLATELET COUNT 170 x10^3mcL (130-400)
--- NOTE | 2018-09-04 05:51 | NUR ---
LAB AT BEDSIDE FOR BLOOD DRAW. PT COOPERATIVE.
[2018-09-04 05:52] LABS: RED CELL DISTRIBUTION WIDTH 15.1 % (11.5-14.5)
[2018-09-04 05:54] LABS: CALCIUM 8.4 mg/dL (8.5-10.1); CARBON DIOXIDE 25.4 mmol/L (21-32); CHLORIDE SERUM 107 mmol/L (98-107); CREATININE SERUM 0.6 mg/dL (0.6-1.0); GFR1 > 60 mL/min; GLUCOSE SERUM 93 mg/dL (74-106); POTASSIUM SERUM 4.1 mmol/L (3.5-5.1); SODIUM SERUM 141 mmol/L (136-145)
[2018-09-04 06:03] LABS: ATYPICAL LYMPH 4 %; BAND NEUTROPHIL 1 % (0-10); MONOCYTE 13 % (0-7); SEGMENTED NEUTROPHILS 46 % (37-75)
[2018-09-04 06:04] LABS: rbc morphology (normal/abnorm) ABNORMAL (NORMAL)
[2018-09-04 06:05] LABS: PLATELET MORPHOLOGY PLATELETS NORMAL
[2018-09-04 08:00] VITALS: BP 120/95
--- NOTE | 2018-09-04 08:00 | NUR ---
PT RESTING IN BED WITH NO APPARENT SIGNS OF DISTRESS. A/A/O/X3, CONFUSED. DENIES VINCENT/DIZZINESS. REPSPONDS TO VERBAL COMMANDS ND ABLE TO MAKE NEEDS KNOWN. NSR ON MONITOR. DENIES CP. RESPIRATIONS E/U. LUNGS CTA. ON RA, DENIES SOB. NO RESP DISTRESS NOTED. ABDOMEN SOFT AND NONTENDER. ACTIVE BS. DENIES N/V. NO BM NOTED AT THIS TIME. VOIDS FREELY. AMBULATORY TO BSC. SKIN W/D/I. NO IV ACCESS AT THIS TIME, LEAD INVESTIGATOR ARY AWARE. PT ABLE TO REPOSITION SELF. BED IN LOWEST POSITION. WILL CONT TO MONITOR
--- NOTE | 2018-09-04 08:32 | NUR ---
DR GUEVARA AT BEDSIDE TO ASSESS PATIENT. PATIENT LETHARGIC BUT ANSWERING QUESTIONS
--- NOTE | 2018-09-04 08:40 | NUR ---
PER DR GUEVARA RECOMMEDATION, PATIENT CONTINUES ON 5150 HOLD. 5150 HOLD/ADVISEMENT COMPLETED AND PLACED IN CHART BY DR GUEVARA.
--- NOTE | 2018-09-04 11:28 | NUR ---
PT RESTING IN BED WITH NO APPARENT SIGNS OF DISTRESS. RESPIRATIONS E/U. ON RA, NO RESP DISTRESS NOTED. NO S/S OF DISCOMFORT/DISTRESS. WILL CONT TO MONITOR
--- NOTE | 2018-09-04 11:39 | NUR ---
REPORT CALLED AND GIVEN TO GIANLUCA COOK. PT TO TRANSFER TO [address] [place] [address]. ALL QUESTIONS AND CONCERNS ADDRESSED AT THIS TIME. WILL CONT TO MONITOR
--- NOTE | 2018-09-04 11:40 | NUR ---
RECIEVED REPORT FROM JOYCE URIAS. PT TRANSFERRING FROM ICU.
--- NOTE | 2018-09-04 12:10 | NUR ---
RECIEVED PT FROM ICU ACCOMPANIED BY JOYCE URIAS. PT A/O X3, NO C/O PAIN, DISTRESS, OR SOB. DENIES ANY SUICIDAL/HOMICIDAL IDEATIONS AT THIS TIME. PT BROUGHT UP [employer]IA [employer]. PT ON 515 HOLD THAT WAS RENEWED TODAY AT 0830. ALLERGY TO PCN. MED HISTORY OF BIPOLAR, SCHIZO, AND DEPRESSION. ALL ORDERS RECIEVED AND WILL CARRY OUT. SAFETY PRECAUTIONS IN PLACE, CALL LIGHT WITHIN REACH, AND SITTER AT BEDSIDE. WILL CONTINUE TO MONITOR.
--- NOTE | 2018-09-04 14:22 | NUR ---
PT ASLEEP AT THIS TIME. NO S/S OF ANY DISTRESS OR PAIN. SITTER AT BEDSIDE, WILL CONTINUE TO MONITOR.
--- NOTE | 2018-09-04 17:29 | NUR ---
NEW ORDER FOR ATIVAN IV RECIEVED. PT MEDICATED FOR ANXIETY PER EMAR, WILL REASSESS.
--- NOTE | 2018-09-04 17:34 | NUR ---
PT STABLE AT THIS TIME. NO C/O PAIN, DISTRESS, OR SOB. IV IN UPPER RIGHT ARM INTACT AND PATENT WITH NO REDNESS OR INFLAMMATION NOTED. SAFETY PRECAUTIONS IN PLACE, CALL LIGHT WITHIN REACH, SITTER AT BEDSIDE, WILL ENDORSE TO NIGHT NURSE.
--- NOTE | 2018-09-04 17:56 | NUR ---
PT STABLE AT THIS TIME. NO PAIN, DISTRESS, OR SOB NOTED. SITTER AT BEDSIDE. IV IN URA INTACT AND PATENT WITH NO REDNESS OR INFLAMMATION. SAFETY PRECAUTIONS IN PLACE, CALL LIGHT WITHIN REACH, WILL ENDORSE TO NIGHT NURSE.
--- NOTE | 2018-09-04 19:15 | NUR ---
RECEIVED PT FROM DAY SHIFT RN. PT IS CURRENTLY RESTING IN BED WITH EYES CLOSED. NO FACIAL GRIMMACING. PER DAY SHIFT NURSE, PT RECEIVED ATIVAN AND HAS BEEN SLEEPING FOR A FEW HOURS. SITTER CURRENTLY AT THE BEDSIDE. PT IS NONCOMBATIVE AT THIS TIME. THERE IS NO RESPIRATORY DISTRESS NOTED. NO USE OF ACCESSORY MUSCLES OR LABORED BREATHING ON ASSESSMENT.TELE MONITOR #[address]. PT DOES NOT APPEAR TO BE IN ANY ACUTE DISTRESS. THERE IS A UPPER RIGHT ARM IV 22G THAT IS CLEAN DRY AND INTACT AT THIS TIME. SALINE LOCKED. SAFETY MEASURES ARE IN PLACE. BED IN THE LOWEST POSITION. CALL LIGHT IS WITHIN REACH. WILL CONTINUE TO MONITOR.
[2018-09-04 21:39] VITALS: BP 100/54
--- NOTE | 2018-09-05 05:17 | NUR ---
PT SLEPT THROUGHOUT THE NIGHT. NON COMBATIVE AND FOLLOWED ALL COMMANDS. PT CURRENTLY RESTING IN BED. NO DISTRESS NOTED. BREATHING EVEN AND UNLABORED.
[2018-09-05 05:53] VITALS: BP 97/55
--- NOTE | 2018-09-05 06:06 | NUR ---
No placement found all thru shift , will continue to look for placement.
--- NOTE | 2018-09-05 07:15 | NUR ---
RECEIVED HAND OFF REPORT FROM [facility] NURSE. PATIENT FOUND LEFT SIDE LAYING AT THIS TIME. EYES CLOSED, BREATHING REGULAR APPARENTLY ASLEEP. CALL LIGHT WITHIN REACH, SITTER PRESENT IN ROOM WILL CONTINUE TO MONITOR
[2018-09-05 07:18] LABS: BASOPHIL % 0.5 % (0-2); PLATELET COUNT 161 x10^3mcL (130-400)
[2018-09-05 07:22] LABS: RED CELL DISTRIBUTION WIDTH 15.4 % (11.5-14.5)
--- NOTE | 2018-09-05 07:36 | NUR ---
CRITICAL LAB VALUE OF WBC 3.6 REPORTED FROM LAB. REPORTED TO NEIDA JOHN NO. NO NEW ORDERS RECEIVED AT THIS TIME PATIENT IS NOW MED SURG PATIENT
--- NOTE | 2018-09-05 07:47 | NUR ---
PATIENT IS NOW [facility] PATIENT. TELE 16 RETURNED TO TELE MONITOR STATION.
[2018-09-05 07:53] LABS: CALCIUM 8.7 mg/dL (8.5-10.1); CARBON DIOXIDE 26.5 mmol/L (21-32); CHLORIDE SERUM 109 mmol/L (98-107); CREATININE SERUM 0.7 mg/dL (0.6-1.0); GFR1 > 60 mL/min; GLUCOSE SERUM 85 mg/dL (74-106); POTASSIUM SERUM 4.4 mmol/L (3.5-5.1); SODIUM SERUM 142 mmol/L (136-145)
--- NOTE | 2018-09-05 09:59 | NUR ---
PATIENT SITTING UP IN BED, CALM AND COOPERATIVE. ADMINSTERED MEDICATIONS PER MAR. NO OTHER COMPLAINT A TTHIS TIME
--- NOTE | 2018-09-05 10:58 | NUR ---
PATIENT ASLEEP AT THIS TIME. SITTER IN ROOM. CALL LIGHT WITHIN REACH OF PATIENT. WILL CONTINUE TO MONITOR
--- NOTE | 2018-09-05 12:38 | NUR ---
PATIENT VISUALIZED RESTING AT THIS TIME. EYES CLOSED, APPARENTLY ASLEEP. NO DISTRESS NOTED. SITTING AT BEDSIDE. CALL LIGHT WITHIN REACH, WILL CONTINUE TO MONITOR
[2018-09-05 13:00] VITALS: BP 102/54
--- NOTE | 2018-09-05 13:32 | NUR ---
PATIENT INCREASINGLY AGITATE AND IN DOWNING WAY SHOUTING. ADMINSITERED MEDICATION PER MAR WELL 1MG LORAZAPAM PER MAR. CALL LIGHT WITHIN REACH. SITTER IN ROOM
--- NOTE | 2018-09-05 14:34 | NUR ---
PATIENT VISUALIZED RESTING IN BED RIGHT SIDE LAYING AT THIS TIME. APPARENTLY ASLEEP. CALL LIGHT WITHIN REACH. SITTER IN ROOM
--- NOTE | 2018-09-05 15:13 | NUR ---
Follwoed up with the following facilities and no available beds at this time: [facility], [facility], [facility], [facility], [facility], [facility]
--- NOTE | 2018-09-05 16:20 | NUR ---
PATIENT SITTING UP IN BED, NO DISTRESS AT THIS TIME. [facility]ILY [facility]ERS AT BEDSIDE. CALL LIGHT WITHIN REACH, WILL CONTINUE TO MONITOR
--- NOTE | 2018-09-05 16:21 | NUR ---
PATIENT SLEEPING AT THIS TIME WITH EYES CLOSED, BREATHING REGULAR. NO DISTRESS NOTED. SITTING AT BEDSIDE. WILL CONTIUE TO MONITOR
--- NOTE | 2018-09-05 16:54 | NUR ---
ADMINISTERED MEDICATIONS PER MAR. PATIENT BECOMING INCREASINGLY AGITATED STATING SHE WANTS TO GO HOME. REMINDED PATIENT SHE IS ON A 5150 HOLD AND WE ARE ATTEMPTING TO FIND PLACEMENT FOR HER, NOT RECEPTIVE OF INFORMATION. CALL LIGHT IS WITHIN REACH AND SITTER IS PRESENT IN ROOM
[2018-09-05 18:15] VITALS: BP 92/49
--- NOTE | 2018-09-05 19:01 | NUR ---
PATIENT STABLE AT THIS TIME. NO ADDITIONAL EPISODES OF ANXIETY, ABLE TO BE REORIENTED. WILL ENDORSE TO NIGHT NURSE
--- NOTE | 2018-09-05 19:30 | NUR ---
RECEIVED PT FROM DAY SHIFT RN. PT AAOX4. DENIES HEADACHE OR DIZZINESS. PT BREATHING EVEN AND UNLABORED ON RA, WITH NO SOB NOTED. MED SURG PT. DENIES CHEST PAIN OR PRESSURE. ABD SOFT/ROUND, ACTIVE BOWEL SOUNDS. PT DENIES ABD PAIN/N/V. PT AMBULATORY. IV URA, PATENT. NO SIGNS OF ACUTE DISTRESS NOTED. CALL BUTTON WITHIN REACH. SAFETY PRECAUTIONS IN PLACE. SITTER AT BEDSIDE. WILL CONTINUE TO MONITOR.
--- NOTE | 2018-09-05 20:06 | NUR ---
PT RESTLESS/AGITATED. PT IN BED MEDICATED PER EMAR. CALL BUTTON WITHIN REACH. SAFETY PRECAUTIONS IN PLACE. SITTER AT BEDSIDE. WILL MONITOR.
[2018-09-05 20:09] VITALS: BP 115/76
--- NOTE | 2018-09-05 20:55 | NUR ---
per Rory COOK pt at this time, still awaiting medical clearance for transfer to a [facility] facility , will endorsed to AM shift to follow up with medicakl clearance.
--- NOTE | 2018-09-05 22:44 | NUR ---
At this time there are still no vacancy , notified charge nurse , will still continue to look for placement.
--- NOTE | 2018-09-06 00:49 | NUR ---
PT RESTING. BREATHING EVEN AND UNLABORED WITH NO SOB NOTED. NO SIGNS OF ACUTE DISTRESS NOTED. SITTER AT BEDSIDE. WILL MONITOR.
--- NOTE | 2018-09-06 02:45 | NUR ---
ROUNDS MADE. PT RESTING, BREATHING EVEN AND UNLABORED WITH NO SIGNS OF DISTRESS NOTED. CALL BUTTON WITHIN REACH. SAFETY PRECAUTIONS IN PLACE. SITTER AT BEDSIDE. WILL CONTINUE TO MONITOR.
--- NOTE | 2018-09-06 06:36 | NUR ---
PT AGITATED AND RESLESS AT THE BEGINING OF SHIFT. PT WAS MEDICATED PER EMAR WITH RELIEF. PT BREATHING EVEN AND UNLABORED NO SIGNS OF DISTRESS. PT SLEPT THE REST OF THE NIGHT WITH NO SIGNS OF ACUTE DISTRESS. CALL BUTTON WITHIN REACH. SAFETY PRECAUTIONS IN PLACE. SITTER AT BEDSIDE. WILL CONTINUE TO MONITOR AND ENDORSE CARE TO DAY SHIFT RN.
--- NOTE | 2018-09-06 07:36 | NUR ---
NO SIGNS OF DISTRESS NOTED. ENDORSED CARE TO DAY SHIFT RN, ALL QUESTIONS ADDRESSED.
--- NOTE | 2018-09-06 07:50 | NUR ---
RECEIVED PATIENT FROM JOYCE HA. PATIENT CURRENTLY SLEEPING, NO SIGNS OF DISTRESS OR DISCOMFORT. WILL CONTINUE TO MONITOR FOR AGITATION OR AGGRESSIVENESS. SITTER AT BEDSIDE. CALL LIGHT IN REACH.
[2018-09-06] MEDS ORDERED: TRAZODONE100 MG PO (10:21)
[2018-09-06] MEDS ORDERED: BEN50 PO (10:21)
[2018-09-06] MEDS ORDERED: RIS1 PO (10:21)
[2018-09-06] MEDS ORDERED: TYL325 PO (10:21)
[2018-09-06] MEDS ORDERED: KLO0.5 PO (10:21)
[2018-09-06] MEDS ORDERED: DIVALPROEX SOD500 M2 PO (10:21)
[2018-09-06] MEDS ORDERED: ATI2I IV (10:22)
[2018-09-06] MEDS ORDERED: AMB5 PO (10:22)
[2018-09-06] MEDS ORDERED: ZOFI IV (10:22)
[2018-09-06] MEDS ORDERED: COL100 PO (10:22)
--- NOTE | 2018-09-06 11:54 | NUR ---
Pt packet has been referred to the following facilitites: [facility]: S/W [place], no beds, added to waitlist. [facility]: s/w [place], No beds, pt on waitlist. [facility] [place], no beds available. [facility]: s/w [place], no beds available, packet on file. [facility]:s/w [place], no beds available, packet on file. [facility]: s/w Karen, no beds available, packet on file. [facility]: s/w [place], no beds available, packet faxed for waitlist. [place]: phone rang coninuously, unable to leave message, will try back later.
--- NOTE | 2018-09-06 12:30 | NUR ---
PATIENT IN BED SLEEPING AT THIS TIME. TRANSFER ORDERS PLACED BY ELISE SHERIFF, WILL AWAIT CALL FROM SS ABOUT PLACEMENT. CALL LIGHT IN REACH, SITTER IN ROOM.
--- NOTE | 2018-09-06 13:01 | NUR ---
PATIENT IN BED AT THIS TIME, NO COMPLAINTS. ASKED IF SHE IS ABLE TO GO HOME TOMORROW, WILL EXPLAIN TO PATIENT THAT SHE MIGHT BE TRANSFERRED TO PSYCH FACILITY, WILL WATCH OUT FOR AGGRESSIVE EPISODES.
--- NOTE | 2018-09-06 16:28 | NUR ---
PATIENT IN BED. DURING MEDICATION PASS, PATIENT BECAME UPSET WHEN UPDATED ABOUT PLAN OF CARE TO TRANSFER TO PSYCHIATRIC FACILITY. PATIENT DEMANDED TO BE LET HOME TODAY BUT EXPLAINED TO PATIENT THAT SHE IS ON A HOLD PER THE PSYCIATRIST. PATIENT ABLE TO BE CALMED DOWN AND RETURN TO BED. PATIENT REFUSED MEDICATIONS AT THIS TIME DUE TO AGITATION. CALL LIGHT IN REACH, SITTER AT BEDSIDE.
--- NOTE | 2018-09-06 18:24 | NUR ---
PATIENT IN BED RESTING, NO COMPLAINTS OF PAIN OR DISCOMFORT. PATIENT STILL AGITATED THAT SHE CANNOT BE RELEASED HOME AT THIS TIME. PATIENT WAS COOPERATIVE WITH PM MEDICATIONS. SITTER AT BEDSIDE, CALL LIGHT IN REACH.
--- NOTE | 2018-09-06 19:40 | NUR ---
PT RECEIVED A/O X4, ABLE TO MAKE NEEDS KNOWN. MED-SURG, DENIES ANY CP/PRESURE. BREATHING IS EVEN AND UNLABORED ON RA, NO RESP DISTRESS NOTED. ABD SOFT AND NONDISTENDED, DENIES N/V. VOIDS FREELY, BRP. AMBULATORY WITH STEADY GAIT. SKIN IS WARM AND DRY, INTACT. PT DENIES ANY PAIN AT THIS TIME. SL TO PADMINI, PATENT AND INTACT, SITE WNL. PT ON 5150 HOLD, PT DENIES ANY SI AT THIS TIME, BUT MAY HAVE EPISODES OF AGITATION OR ANXIETY. SITTER AT BEDSIDE. NO ACUTE DISTRESS NOTED. CALL LIGHT WITHIN REACH. WILL CONT TO MONITOR.
--- NOTE | 2018-09-06 20:40 | NUR ---
PT C/O 8/10 TOOTH PAIN, PRN TYLENOL GIVEN ORDERED. PT ALSO C/O DIFFICULTY SLEEPING, PRN AMBIEN GIVEN ORDERED. NO ACUTE DISTRESS NOTED. SITTER AT BEDSIDE. CALL LIGHT WITHIN REACH. WILL CONT TO MONITOR.
[2018-09-06 21:36] VITALS: BP 112/60
--- NOTE | 2018-09-06 22:19 | NUR ---
OFFERED PT SCHEDULED EVENING MEDS. PT BECAME VERY AGITATED. PT YELLING OUT, "NO! I DON'T WANT THEM! YOU'RE GIVING ME ALL THESE MEDICATIONS AND THEY'RE MAKING MY TOOTH HURT! I SAID NO!" PT CONT TO REFUSE MEDS. WILL NOTIFY MD. PT IN NO ACUTE DISTRESS. CALL LIGHT WITHIN REACH. SITTER AT BEDSIDE. WILL CONT TO MONITOR.
--- NOTE | 2018-09-07 01:15 | NUR ---
PT RESTING IN BED WITH EYES CLOSED, BUT IS EASILY AROUSABLE. BREATHING IS EVEN AND UNLABORED, NO RESP DISTRESS NOTED. NO S/S OF PAIN OBSERVED. SITTER AT BEDSIDE. CALL LIGHT WITHIN REACH. WILL CONT TO MONITOR.
--- NOTE | 2018-09-07 05:31 | NUR ---
PT SLEPT WELL THROUGHOUT THE EVENING. BREATHING IS EVEN AND UNLABORED, NO RESP DISTRESS NOTED. PT DENIES HAVING ANY PAIN AT THIS TIME. NO ACUTE CHANGES ENCOUNTERED DURING SHIFT. ALL NEEDS MET AND ANTICIPATED. SITTER AT BEDSIDE. CALL LIGHT WITHIN REACH. WILL ENDORSE CARE TO AM NURSE.
[2018-09-07 06:20] VITALS: BP 123/74
--- NOTE | 2018-09-07 07:10 | NUR ---
RECEIVED REPORT FROM NICOLE COOK. PATIENT RESTING COMFORTABLY IN BED WITH SITTER AT BEDSIDE. IV TO PADMINI IS PATENT AND INTACT. NO REDNESS OR PAIN. PT ON ROOM AIR. NO C/O SOB AND NO DISTRESS NOTED. ALL QUESTIONS AND CONCERNS ADDRESSED.
--- NOTE | 2018-09-07 07:30 | NUR ---
PT IN NO ACUTE DISTRESS. CONTINUITY OF CARE ENDORSED TO HARMONY RN. ALL QUESTIONS AND CONCERNS ADDRESSED.
[2018-09-07 09:00] VITALS: BP 116/61
--- NOTE | 2018-09-07 14:47 | NUR ---
SPOKE WITH [facility] SHERIFF FOR DISCHARGE ORDER. PER DR ZIMMERMAN PT IS STABLE FOR DISCHARGE AND FOLLOW UP OUTPATIENT.
[2018-09-07 15:26] VITALS: BP 116/61
--- NOTE | 2018-09-07 16:08 | NUR ---
PATIENT STABLE FOR DISCHARGE PER MD. DISCHARGE INSTRUCTIONS AND SUMMARY DISCUSSED WITH PATIENT. PT VERBALIZED UNDERSTANDING AND AGREES TO FOLLOW UP WITH OUT PATIENT MENTAL HEALTH. IV REMOVED. ID BANDS CUT. DISCHARGE PRESCRIPTIONS PROVIDED. COMMUNITY RESOURCES GIVEN TO PATIENT ALONG WITH BUS PASSES. PATIENT REFUSED ALL FOOD BUT ACCCEPTED A SODA AND WATER. PT ESCORTED TO DISCHARGE OFFICE.
== END 2018-09-07 16:05 | disposition home or self-care (01) | DRG 750 ==
LOC: ED 07:25 → IC 08-31 07:47 → MU 08-31 07:47 → IC 08-31 09:09 → MU 08-31 10:08 → DU 09-01 17:05 → IC 09-01 19:20 → MU 09-04 12:09 → DU 09-04 12:11 → MU 09-05 07:34
PROVIDERS: Emergency Medicine; ADMIT Internal Medicine
DX: F25.0 Schizoaffective disorder, bipolar type (principal); E44.0 Moderate protein-calorie malnutrition; Z59.0 Homelessness; Z91.14 Patient's other noncompliance with medication regimen; R46.0 Very low level of personal hygiene; Z68.24 Body mass index [BMI] 24.0-24.9, adult
CPT/HCPCS: G0378; G0480; J1200; J1630; J2060; J3486; J7030; Q0163